=== PATIENT | male | born 1940 | race Caucasian/White ===

== ENCOUNTER → 2016-08-31 | Outpatient (CLI) | payer MEDICARE ==
[2016-08-31 14:59] LABS: CH 28.8; CHCM 31.9; HCT 50.6 % (39.0-53.0); HDW 2.43; HGB 15.9 gm/dL (13.0-17.5); MCH 28.4 pg (25.0-35.0); MCHC 31.4 g/dL (31.0-37.0); MCV 90.6 fL (80.0-100.0); Mean Platelet Volume 7.4; RBC 5.59 m/uL (4.30-5.90); RDW 13.8 % (11.5-15.5)
[2016-08-31 15:16] LABS: Anion Gap 8 mmol/L; Blood Urea Nitrogen 22 mg/dL (9-20); Carbon Dioxide 26 mmol/L (22-30); Chloride 105 mmol/L (98-107); Non-African American GFR(MDRD) >60 (>60 ml/min/1.73 sqM); Potassium 4.5 mmol/L (3.5-5.1); Sodium 139 mmol/L (137-145)
== END ==
LOC: LABPAT 14:33
PROVIDERS: ATTEND Internal Medicine Interventional Cardiology
DX: Z01.812 Encounter for preprocedural laboratory examination (principal); I25.10 Atherosclerotic heart disease of native coronary artery without angina pectoris
CPT/HCPCS: 80051; 82565; 84520; 85027

== ENCOUNTER 2016-09-08 06:09 | Day surgery (SDC) | payer BC, MEDICARE ==
[2016-09-06 15:49] VITALS: BMI 28.5
[~2016-09-08 06:09] MED LIST: ALPRAZolam 0.25 MG TAB PO PRN; ALPRAZolam 0.5 MG TAB PO PRN; ASPIRIN 325 MG TAB PO STA; ATORVASTATIN 80 MG TAB PO STA; NITROGLYCERIN SL TABS 0.4 MG TAB SUBLINGUAL PRN; SODIUM CHLORIDE 0.9% 1,000 ML in EMPTY BAG 1 BAG IV ONE
[2016-09-08 06:48] LABS: Glucose,Whole Blood 116 mg/dL (75-99)
[2016-09-08] MEDS ORDERED: LIDOCAINE 2% INJ 20 MG/ML (20 ML MDV) ONE (07:14)
[2016-09-08] MEDS ORDERED: VERAPAMIL 2.5 MG/ML 2 ML AMP ONE (07:21)
[2016-09-08] MEDS ORDERED: HEPARIN SODIUM 1,000 UNIT/ML VIAL ONE (07:24)
[2016-09-08] MEDS ORDERED: fentaNYL (PF) 50 MCG/ML 2 ML AMP ONE (07:24)
[2016-09-08] MEDS ORDERED: fentaNYL (PF) 50 MCG/ML 2 ML AMP IV ONE (07:54)
[2016-09-08] MEDS ORDERED: MIDAZOLAM 2 MG/2 ML VIAL ONE (07:59)
[2016-09-08] MEDS ORDERED: MIDAZOLAM 2 MG/2 ML VIAL IV ONE (08:00)
[2016-09-08] MEDS ORDERED: LIDOCAINE 2% INJ 20 MG/ML SQ ONE (08:00)
[2016-09-08] MEDS ORDERED: VERAPAMIL SYRINGE (5 MG/10 ML) INTRAARTER ONE (08:01)
[2016-09-08] MEDS: NITROGLYCERIN 1000MCG/10ML SYRINGE INTRACORON ONE ×2 (08:12→08:34)
[2016-09-08] MEDS ORDERED: BIVALIRUDIN BOLUS 250 MG/50 ML IV ONE (08:16)
[2016-09-08] MEDS ORDERED: BIVALIRUDIN 250 MG in SODIUM CHLORIDE 0.9% 50 ML IV ONE (08:19)
[2016-09-08] MEDS ORDERED: PRASUGREL 10 MG TAB ONE (08:21)
[2016-09-08] MEDS ORDERED: PRASUGREL 10 MG TAB PO ONE (08:26)
[2016-09-08] MEDS ORDERED: HYDROmorphone 2 MG/ML 1 ML SYRINGE ONE (08:36)
[2016-09-08] MEDS ORDERED: HYDROmorphone 2 MG/ML 1 ML SYRINGE IV ONE (08:37)
[2016-09-08] MEDS ORDERED: ADENOSINE 90 MG in SODIUM CHLORIDE 0.9% 60 ML IVP ONE (08:52)
[2016-09-08] MEDS ORDERED: IOHEXOL 350 MG/ML 125ML BOTTLE INJ ONE (09:01)
[2016-09-08] MEDS ORDERED: MAG HYDROX/AL HYDROX/SIMETH 30 ML CUP PO PRN (09:14)
[2016-09-08] MEDS ORDERED: ATROPINE SULFATE 0.1 MG/ML 10ML SYRINGE IV PRN (09:14)
[2016-09-08] MEDS ORDERED: RX INFO: IV CONTRAST WAS GIVEN 1 EACH MISC MISCELLANE PRN (09:14)
[2016-09-08] MEDS ORDERED: NITROGLYCERIN SL TABS 0.4 MG TAB SUBLINGUAL PRN (09:14)
[2016-09-08] MEDS ORDERED: SODIUM CHLORIDE 0.9% 1,000 ML IV SCH (09:15)
[2016-09-08] MEDS ORDERED: POLYETHYLENE GLYCOL 3350 17 GM POWD.PACK PO SCH (09:30)
[2016-09-08] MEDS ORDERED: PANTOPRAZOLE 40 MG TABLET PO SCH (12:30)
--- NOTE | 2016-09-08 13:48 | CC ---
DATE OF SERVICE: Mr. Valerio is a 76-year-old male with known history of hyperlipidemia, who underwent myocardial perfusion imaging that revealed evidence of inferior wall ischemia. Patient has been evaluated for possible surgical intervention on his hip. In view of the finding and his risk factors, recommendation was made regarding cardiac catheterization. The procedure as well as risks and complications were discussed with the patient who is in full understanding and agreement. PROCEDURE: Patient was brought to the [facility] in fasting semi-sedated state after using fentanyl and Benadryl and achieving moderate conscious sedated state, using Xylocaine anesthesia and Seldinger technique, a 6 [place]an sheath was introduced in the right radial artery. Selective right and left coronary angiography was performed using 5 [place]an 3-1/2 Bend, right Sonja catheter, multiple views of the coronary artery including hemiaxial views were obtained. Following that, a 5 [place]an tight Pigtail catheter as introduced into the left ventricle and a 30 degree CANO view of the left ventricle was obtained. Following that, the catheter was removed. Images were reviewed. Of note, the patient received intra-arterial verapamil. FINDINGS: FLUOROSCOPY: There is calcification involving all the coronary arteries. LEFT MAIN: This is a short-sized vessel bifurcating into the left circumflex, left anterior descending artery, left main coronary artery is without any significant obstructive disease. LEFT ANTERIOR DESCENDING ARTERY: This vessel reached toward the apex with a wraparound apex segment, giving rise to a very proximal diagonal branch in the mid segment after the take off of the first septal civil clerk. There is a long calcified segment with area of stenosis up to 80%. The rest of the vessel has no high-grade stenosis with diffuse intimal disease. LEFT CIRCUMFLEX: This is a nondominant vessel, giving rise to 2 obtuse marginal branches. The first one is small in caliber, has diffuse intimal disease. The second one has no evidence of high-grade stenosis. RIGHT CORONARY ARTERY: This has a large dominant vessel, bifurcating distally into PDA and posterolateral segment and branches. The right coronary artery in mid segment has a calcified area with an area of stenosis of about 50% to 60%. The rest of vessel has intimal disease without any evidence of high-grade stenosis. LEFT VENTRICULOGRAM: Left ventriculogram was performed in 30 degree CANO view and revealed normal left ventricular size with ejection fraction of 50%. HEMODYNAMICS: There was no gradient across the aortic valve. The left ventricle end-diastolic pressure was 12 mmHg. CONCLUSION: 1. Calcified coronary artery. 2. Significant disease in the mid left anterior descending coronary artery. 3. Moderate to significant disease in the mid right coronary artery. 4. Mildly impaired left ventricular systolic function. RECOMMENDATION: In view of findings anatomy, I have recommended proceeding with angioplasty and stenting of the LAD and measurement of the fraction flow reserve of the right coronary artery and depending on that, further recommendation will be made. Those findings and recommendations were discussed with the patient and he was in full understanding and agreement.
--- NOTE | 2016-09-08 13:54 | PTCA ---
DATE OF SERVICE: Mr. Valerio is a 76-year-old male with known history of diabetes who had an abnormal myocardial perfusion imaging. His cardiac catheterization revealed critical stenosis in the mid LAD with borderline significant lesion in the mid RCA. In view of those findings, recommendation made regarding angioplasty and stenting of the LAD and measurement of the fraction flow reserve of the RCA. Those findings and recommendations were discussed with the patient and he was in full understanding and agreement. PROCEDURE: A 6 Moroccan FL 3-1/2 guiding catheter was introduced into the system. After cannulating the left main, 0.014 balanced medium weight J-wire was advanced across the lesion, positioned distally, then a 2.5 x 12 mm trek balloon was advanced, one inflation at 8 atmospheres was done. Following that, the balloon was removed and a 2.5 x 23 mm Xience Alpine stent was deployed, post-dilated at 16 atmospheres. After the last inflation, after appropriate wait, the balloon and the guidewire were withdrawn back in the guided catheter. Images were obtained and repeated. Those images reveal stable successful stenting. At that point, the guiding catheter, the balloon and the guidewire were removed, and a 6 Moroccan FR4 guiding catheter was introduced in the system. After cannulating the right coronary ostium, a Metallk[employer] AS Doppler flow wire was introduced and positioned distally and after infusion of IV adenosine per protocol, fractional flow reserve was measured at 85%. At that point, the wire and the guiding catheter were removed. The sheath was removed. Hemostasis was obtained with deployment of a TR band. There were no immediate complication. Patient was returned to his room in stable condition. Of note, the patient received Angiomax per protocol as well as oral loading dose of Effient. He had no chest discomfort or significant EKG changes. RESULT: 1. Successful stenting of the mid left anterior descending coronary artery with reduction in stenosis from 80% to 0%. 2. Nonhemodynamic significant lesion in the mid-right coronary artery. RECOMMENDATION: I have reviewed the results of testing with the patient as well as the importance of dual antiplatelet treatment and depending on his progress, further recommendation will be made. The duration of the procedure is 60 minutes.
--- NOTE | 2016-09-08 13:57 | LTR ---
September 08, 2016 RE: ImanBj Dear Dr. Ordonez: I had the pleasure to perform cardiac catheterization and angioplasty on Mr. Valerio at [facility] on September 08, 2016. A full copy of the procedure note will be forwarded to you. In brief, he was found to have critical stenosis involving the mid LAD and underwent stenting of that vessel using a drug-eluting stent and he had a borderline significant lesion in the mid right coronary artery and measurement of his fractional flow reserve showed a nonhemodynamic significant lesion. Based on this findings, I have recommended to continue medical therapy with a dual antiplatelet treatment. Please feel free to call for any questions. Sincerely yours, ABI PELAYO MD
[2016-09-08 16:48] LABS: Glucose,Whole Blood 127 mg/dL (75-99)
[2016-09-08] MEDS: CHOLECALCIFEROL 1,000 UNIT TAB PO SCH (16:50)
[2016-09-08] MEDS ORDERED: clonazePAM 1 MG TAB PO SCH (21:00)
[2016-09-08] MEDS ORDERED: ATORVASTATIN 80 MG TAB PO SCH (21:00)
[2016-09-08] MEDS ORDERED: ZOLPIDEM 5 MG TAB PO PRN (21:00)
[2016-09-08 21:11] LABS: Glucose,Whole Blood 136 mg/dL (75-99)
[2016-09-09 06:17] LABS: Anion Gap 9 mmol/L; Blood Urea Nitrogen 18 mg/dL (9-20); Calcium 8.9 mg/dL (8.4-10.2); Carbon Dioxide 23 mmol/L (22-30); Chloride 106 mmol/L (98-107); Glucose 130 mg/dL (74-99); Non-African American GFR(MDRD) >60 (>60 ml/min/1.73 sqM); Potassium 4.2 mmol/L (3.5-5.1); Sodium 138 mmol/L (137-145)
[2016-09-09 06:25] LABS: Glucose,Whole Blood 139 mg/dL (75-99)
[2016-09-09] MEDS ORDERED: FINASTERIDE 5 MG TAB PO SCH (09:00)
[2016-09-09] MEDS ORDERED: CALCIUM CARBONATE 500 MG CHEWABLE PO SCH (09:00)
[2016-09-09] MEDS ORDERED: ASPIRIN 81 MG CHEW PO SCH (09:00)
[2016-09-09] MEDS ORDERED: TAMSULOSIN 0.4 MG CAP.ER.24H PO SCH (09:00)
[2016-09-09] MEDS ORDERED: LISINOPRIL 5 MG TAB PO SCH (09:00)
[2016-09-09] MEDS ORDERED: PRASUGREL 10 MG TAB PO SCH (09:00)
--- NOTE | 2016-09-09 09:02 | PN ---
Mr. Valerio is a 76-year-old male with known history of diabetes, hyperlipidemia, who presented with a normal myocardial perfusion imaging, underwent cardiac catheterization, was found to have critical stenosis involving the LAD and moderately significant disease in the mid right coronary artery, underwent stenting of the LAD and had a nonhemodynamic significant lesion body fraction flow reserve in the right coronary artery. He is doing well this morning. His breathing has been stable. He is denying any chest pain. No dizziness. No palpitation. No nausea. He continues on aspirin once a day, Lipitor 80 mg daily, finasteride 5 mg daily, Lisinopril 5 mg daily, Effient 10 mg daily. PHYSICAL EXAMINATION: Blood pressure 117/60 with a heart in the 70s. LUNGS: Clear. HEART: Regular rate and rhythm. S1 and S2, no S3, no rub. ABDOMEN: Soft, nontender. EXTREMITIES: No edema. Right radial pulse intact. EKG revealed no acute changes. BUN and creatinine 18 and 0.9. Potassium 4.2. IMPRESSION: 1. Status post stenting of the LAD with a nonhemodynamic significant fractional flow reserve of the right coronary artery. 2. Hypertension. 3. Hyperlipidemia. 4. Diabetes mellitus. RECOMMENDATION: Patient will be discharged home today and followed as outpatient in one week.
[2016-09-09] MEDS: CHOLECALCIFEROL 1,000 UNIT TAB PO SCH (09:39)
[2016-09-09 10:43] VITALS: BP 148/71; PULSE 83; RESP 16; TEMP 97.2
== END 2016-09-09 11:32 | disposition home or self-care (01) ==
LOC: CATHCVL 06:09 → 6SEL 08:55 → CATHCVL 09-09 11:32
PROVIDERS: ATTEND Internal Medicine Interventional Cardiology
DX: I25.10 Atherosclerotic heart disease of native coronary artery without angina pectoris (principal); I25.84 Coronary atherosclerosis due to calcified coronary lesion; I10 Essential (primary) hypertension; E11.9 Type 2 diabetes mellitus without complications; E78.5 Hyperlipidemia, unspecified; Z79.84 Long term (current) use of oral hypoglycemic drugs; Z79.899 Other long term (current) drug therapy; Z79.82 Long term (current) use of aspirin
CPT/HCPCS: 93571; 93458; 80048; C9600; C1769 ×3; C1887 ×2; C1894; C1725; C1874; J2001; S0138; J2250; J1170; J3010; J0583; J0153; Q9967